=== PATIENT | female | born 1960 | race American Indian/Alaskan Native ===

== ENCOUNTER 2019-09-15 15:46 | Emergency (ER) | payer MEDICAID ==
[2019-09-15] MEDS ORDERED: LORazepam 1 MG TAB PO ONE (17:00)
[2019-09-15 17:20] LABS: Hematocrit 36.6 % (30.3-42.9); Mean Corpuscular HGB Conc 33 % (30-34); Mean Corpuscular Volume 96 fl (79-97); Platelet Count 299 K/mm3 (140-440); Red Blood Count 3.83 M/mm3 (3.65-5.03); Red Cell Distribution Width 13.5 % (13.2-15.2)
[2019-09-15 17:37] LABS: Albumin 4.3 g/dL (3.9-5); Calcium 9.8 mg/dL (8.4-10.2)
[2019-09-15] MEDS ORDERED: LORazepam 2 MG/ML VIAL IM PRN (18:48)
[2019-09-15] MEDS ORDERED: HALOPERIDOL LACTATE 5 MG/1 ML INJ IM PRN (18:48)
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
[2019-09-15] MEDS ORDERED: SODIUM CHLORIDE 0.9% 1000 ML 1,000 ML IV ONE (22:01)
[2019-09-15] MEDS ORDERED: SODIUM CHLORIDE 0.9% 1000 ML 2,000 ML IV ONE (22:01)
--- NOTE | 2019-09-15 23:23 | Cat Scan Report ---
CT HEAD WITHOUT CONTRAST INDICATION / CLINICAL INFORMATION: agitated behaviour. TECHNIQUE: All CT scans at this location are performed using CT dose reduction for ALARA by means of automated e xposure control. COMPARISON: None available. FINDINGS: Patient motion artifact degrades the images somewhat. HEMORRHAGE: None. EXTRA-AXIAL SPACES: Normal in size and morphology for the patient's age. VENTRICULAR SYSTEM: Normal in size and morphology for the patient's age. CEREBRAL PARENCHYMA: Extensive white matter hypodensities which may represent microangiopathy. MIDLINE SHIFT OR HERNIATION: None. CEREBELLUM / BRAINSTEM: No significant abnormality. ORBITS: Normal as visualized. SOFT TISSUES of HEAD: No significant abnormality. CALVARIUM: No significant abnormality. PARANASAL SINUSES / MASTOID AIR CELLS: Normal as visualized. ADDITIONAL FINDINGS: None. IMPRESSION: 1. No acute intracranial abnormality. 2. Extensive white matter hypodensities may represent microangiopathy. Signer Name: Zoya Magana MD Signed: 09/15/2019 11:18 PM Workstation Name: [id number]
[2019-09-16 08:50] VITALS: BP 140/80
[2019-09-16] MEDS ORDERED: ZIPRASIDONE MESYLATE 20 MG VIAL IM ONE (09:17)
[2019-09-16] MEDS ORDERED: LORazepam 2 MG/ML VIAL IM ONE (09:17)
--- NOTE | 2019-09-16 09:55 | Consultation ---
History of Present Illness - Reason for Consult Consult date: 09/16/19 Reason for consult: Mental Health Evaluation Requesting physician: SHELDON ARROYO - Chief Complaint Chief complaint: "I was upset, so I used" - History of Present Psychiatric Illness 59 y.o. AA female who presented to the ER for substance abuse. Today the patient was calm and cooperative during the assessment. She stated that her "membership advisor" walked out on her reference a conversation that upset her. She stated that she decided to go get "high." She acknowledged that she was at a gas station using "meth" prior to her arrival to the ER. She stated that she has a hx of substance abuse and denies any other mental health dx's when asked. She stated that she would like to stop using "meth." She would not confirm or deny rehab services when asked. She denies SI/HI's and AVH's. She denies erratic sleep and a poor appetite. She denies alcohol consumption (etoh). The patient was eating her breakfast during the interview. Medications and Allergies Allergies Allergy/AdvReac Type Severity Reaction Status Date / Time No Known Allergies Allergy Unverified 01/12/15 12:38 Home Medications Medication Instructions Recorded Confirmed Last Taken Type ALBUTEROL Inhaler (OR & NICU) 2 puff IH QID PRN #1 inhalation 01/12/15 Unknown Rx [ProAir HFA Inhaler] Clonidine HCl [Catapres] 0.3 mg PO BID #60 tablet 01/12/15 Unknown Rx Levothyroxine [Synthroid] 50 mcg PO QAM #30 tablet 01/12/15 Unknown Rx Lisinopril [Zestril TAB] 20 mg PO QDAY #30 tablet 01/12/15 Unknown Rx Montelukast Sodium [Singulair] 4 mg PO DAILY #30 tab.chew 01/12/15 Unknown Rx Venlafaxine HCl [Effexor Xr] 75 mg PO DAILY #4 cap.er.24h 01/12/15 Unknown Rx Venlafaxine HCl [Effexor Xr] 150 mg PO DAILY #60 cap.er.24h 01/12/15 Unknown Rx Active Meds: Active Medications Haloperidol Lactate (Haldol) 5 mg IM Q6HR PRN PRN Reason: Agitation Lorazepam (Ativan) 2 mg IM Q4HR PRN PRN Reason: Agitation Last Admin: 09/15/19 23:45 Dose: 2 mg Documented by: Past psychiatric history - Past Medical History Past Medical History: No medical history Past Surgical History: No surgical history - past Psychiatric treatment and history psychiatric treatment history: Hx of substance abuse. Denies a fam psy hx. - Social History Social history: Lives alone Mental Status Exam - Vital signs Last Vital Signs Temp 97.8 F 09/16/19 08:47 Pulse 83 09/16/19 08:47 Resp 18 09/16/19 08:47 BP 140/80 09/16/19 08:47 Pulse Ox 97 09/16/19 08:47 - Exam Narrative exam: MSE: Appearance: calm, cooperative Behavior: regular eye contact Speech: regular rate and tone Mood: "okay" Affect: congruent to mod Thought Process: circumstantial Thought Content: denies SI/HI's and AVH's Motor Activity: ambulatory Cognition: A/O x 3 Insight: fair Judgment: fair Results Result Diagrams: 09/15/19 16:52 09/16/19 09:49 Abnormal lab results 09/15/19 09/15/19 09/15/19 Range/Units 16:52 16:52 16:52 WBC 12.3 H (4.5-11.0) K/mm3 Carbon Dioxide 17 L (22-30) mmol/L BUN 42 H (7-17) mg/dL Creatinine 1.8 H (0.7-1.2) mg/dL Total Creatine Kinase (30-135) units/L Salicylates < 0.3 L (2.8-20.0) mg/dL Acetaminophen (10.0-30.0) ug/mL 09/15/19 09/15/19 Range/Units 16:52 18:49 WBC (4.5-11.0) K/mm3 Carbon Dioxide (22-30) mmol/L BUN (7-17) mg/dL Creatinine (0.7-1.2) mg/dL Total Creatine Kinase 156 H (30-135) units/L Salicylates (2.8-20.0) mg/dL Acetaminophen < 5.0 L (10.0-30.0) ug/mL All other labs normal. Assessment and Plan Assessment and plan: Impression: Hx of substance abuse per the patient. Today the patient was calm and cooperative during the assessment. UDS/UA uncollected. Recommendation/Plan: Discussed the importance to abstain from recreational drug use with the patient, she verbalized understanding. Psy sign off. Dispo: The patient can follow up with [facility] for outpatient rehab services. Will staff with Dr Jackelyn Alberto.
[2019-09-16 10:25] LABS: Creatine Kinase MB 4.6 ng/mL (0.0-4.0)
== END 2019-09-16 13:43 | disposition home or self-care (01) ==
LOC: EEVIPCON 15:46 → ED 15:46
DX: F15.20 Other stimulant dependence, uncomplicated (principal); E86.0 Dehydration; N17.9 Acute kidney failure, unspecified; E03.9 Hypothyroidism, unspecified; F17.200 Nicotine dependence, unspecified, uncomplicated; F12.10 Cannabis abuse, uncomplicated; Z79.899 Other long term (current) drug therapy
CPT/HCPCS: 36415; 70450; 80048; 80053; 82550; 82553; 84703; 85027; 93005; 93010; 96360; 96361; 96372; 99285; J2060; J3486; J7030; 80320; G0480